=== PATIENT | female | born 2000 | race Caucasian/White ===

== ENCOUNTER 2023-01-06 21:12 | Inpatient (IN) ==
[2023-01-06] MEDS ORDERED: Lactated Ringers 1000 ml BAG 1,000 ML IV ONE (21:39)
[2023-01-06] MEDS ORDERED: Buffered Lidocaine 1% SYRIN 1 ml INTRADERM ONE (21:39)
[2023-01-06] MEDS ORDERED: Lactated Ringers 1000 ml BAG 1,000 ML IV SCH (22:00)
[2023-01-06 22:46] LABS: Urine Benzodiazepine Screen None Detected (None Detect); Urine Cannabinoids Screen None Detected (None Detect); Urine Opiates Screen None Detected (None Detect)
[2023-01-06 23:00] LABS: Hematocrit 35.5 % (35-45); Hemoglobin 11.7 g/dL (11.5-14.3); Mean Corpuscular Hemoglobin 30.2 pg (27-33); Mean Corpuscular Hgb Conc 32.9 g/dL (31-36); Mean Corpuscular Volume 91.7 fL (80-97); Red Blood Count 3.87 10^6/uL (3.63-4.92); Red Cell Distribution Width 14.8 % (12-17); White Blood Count 14.2 10^3/uL (3.8-11.8)
[2023-01-06 23:17] LABS: ABS Lymphocytes 2.1 10^3/uL (1.0-4.8); ABS Monocytes 0.9 10^3/uL (0.0-0.9); ABS Neutrophils 11.1 10^3/uL (1.5-7.6); ABS Nucleated RBC 0.01 10^3/ul; Eosinophil % 0.2 %; Lymphocyte % 14.8 %; Mean Platelet Volume 11.2 fL (7.5-11.2); Nucleated Red Blood Cells % 0.1 /100 WBC (0.0-0.4); Platelet Count 92 10^3/uL (150-450)
[2023-01-07] MEDS ORDERED: Oxytocin in LR 20,000 MILLI.UNIT/1,000 ML BAG IV ONE (01:31)
[2023-01-07] MEDS ORDERED: Glycerin ADULT 2.4 gm SUPP PR PRN (04:00)
[2023-01-07] MEDS ORDERED: Dibucaine 1% OINT 28.35 GM TUBE PR PRN (04:00)
[2023-01-07] MEDS ORDERED: Witch Hazel PAD JAR TOPICAL PRN (04:00)
[2023-01-07] MEDS ORDERED: Oxytocin in LR 20,000 MILLI.UNIT/1,000 ML BAG IV SCH (06:45)
[2023-01-08 08:02] LABS: ABS Basophils 0.1 10^3/uL (0.0-0.1); ABS Eosinophils 0.1 10^3/uL (0.0-0.5); ABS Lymphocytes 3.2 10^3/uL (1.0-4.8); ABS Monocytes 0.8 10^3/uL (0.0-0.9); ABS Neutrophils 7.2 10^3/uL (1.5-7.6); ABS Nucleated RBC 0.02 10^3/ul; Eosinophil % 0.5 %; Hematocrit 30.7 % (35-45); Hemoglobin 10.4 g/dL (11.5-14.3); Mean Corpuscular Hemoglobin 30.8 pg (27-33); Mean Corpuscular Volume 90.6 fL (80-97); Mean Platelet Volume 11.6 fL (7.5-11.2); Nucleated Red Blood Cells % 0.2 /100 WBC (0.0-0.4); Platelet Count 98 10^3/uL (150-450); Red Blood Count 3.39 10^6/uL (3.63-4.92); White Blood Count 11.3 10^3/uL (3.8-11.8)
[2023-01-09 07:47] VITALS: BP 114/60
== END 2023-01-09 15:19 | disposition home or self-care (01) | DRG 560 ==
LOC: MCHOBOUT 21:12 → MCHOB 21:33
PROVIDERS: ADMIT Midwife; ATTEND Midwife

== ENCOUNTER 2024-08-02 22:23 | Inpatient (IN) ==
[2024-08-02] MEDS ORDERED: Lidocaine 1% VIAL 10 MG/ML 30 ML VIAL INJ PRN (22:47)
[2024-08-02] MEDS ORDERED: Methylergonovine 0.2 mg AMPULE 1 ml AMP IM PRN (22:55)
[2024-08-02 23:30] LABS: Hematocrit 40.9 % (35-45); Mean Corpuscular Hemoglobin 32.2 pg (27-33); Mean Corpuscular Hgb Conc 34.1 g/dL (31-36); Mean Corpuscular Volume 94.3 fL (80-97); Red Blood Count 4.34 10^6/uL (3.63-4.92); White Blood Count 14.9 10^3/uL (3.8-11.8)
[2024-08-02] MEDS: Lactated Ringers 1000 ml BAG 1,000 ML IV SCH (23:39)
[2024-08-03] MEDS ORDERED: Polyethylene Glycol 3350 17 GM PACKET PO PRN (00:04)
[2024-08-03] MEDS ORDERED: Glycerin ADULT 2.4 gm SUPP PR PRN (00:04)
[2024-08-03 00:11] LABS: ABS Basophils 0.1 10^3/uL (0.0-0.1); ABS Lymphocytes 2.1 10^3/uL (1.0-4.8); ABS Monocytes 0.7 10^3/uL (0.0-0.9); ABS Nucleated RBC 0.01 10^3/ul; Eosinophil % 0.1 %; Lymphocyte % 14.2 %; Mean Platelet Volume 11.9 fL (7.5-11.2); Nucleated Red Blood Cells % 0.1 %/100WBC (0.0-0.8); Platelet Count 98 10^3/uL (150-450)
[2024-08-03] MEDS: Dibucaine 1% OINT 28.35 GM TUBE PR PRN (00:41)
[2024-08-03] MEDS: Witch Hazel PAD JAR TOPICAL PRN (00:41)
[2024-08-03] MEDS: Oxytocin in LR 20,000 MILLI.UNIT/1,000 ML BAG IV SCH (00:43)
[2024-08-03] MEDS: Buffered Lidocaine 1% SYRIN 1 ml INTRADERM ONE (03:32)
[2024-08-03] MEDS: Lactated Ringers 1000 ml BAG 1,000 ML IV ONE (03:54)
[2024-08-03 10:31] LABS: Hematocrit 33.5 % (35-45); Hemoglobin 11.3 g/dL (11.5-14.3); Mean Corpuscular Hemoglobin 31.6 pg (27-33); Mean Corpuscular Hgb Conc 33.7 g/dL (31-36); Mean Corpuscular Volume 93.8 fL (80-97); Red Blood Count 3.57 10^6/uL (3.63-4.92); Red Cell Distribution Width 13.7 % (12-17); White Blood Count 13.1 10^3/uL (3.8-11.8)
[2024-08-03 11:06] LABS: ABS Basophils 0.1 10^3/uL (0.0-0.1); ABS Lymphocytes 2.1 10^3/uL (1.0-4.8); ABS Monocytes 0.7 10^3/uL (0.0-0.9); ABS Neutrophils 10.2 10^3/uL (1.5-7.6); Eosinophil % 0.1 %; Lymphocyte % 15.8 %; Mean Platelet Volume 11.4 fL (7.5-11.2); Platelet Count 98 10^3/uL (150-450)
[2024-08-04 05:38] LABS: Urine Benzodiazepine Screen None Detected (None Detect); Urine Cannabinoids Screen None Detected (None Detect); Urine Opiates Screen None Detected (None Detect)
[2024-08-04 08:58] VITALS: BP 107/53
[2024-08-04 18:41] LABS: Syphilis IgG Screen Nonreactive
== END 2024-08-04 13:26 | disposition home or self-care (01) | DRG 560 ==
LOC: MCHOBOUT 22:23 → MCHOB 22:45